=== PATIENT | female | born 1990 | race Caucasian/White ===

== ENCOUNTER 2022-03-17 15:46 | Emergency (ER) | payer OTHER | END 2022-03-17 22:07 | disposition home or self-care (01) | LOC: ER1 15:46 | DX: S80.01XA Contusion of right knee, initial encounter (principal); M06.9 Rheumatoid arthritis, unspecified; W01.10XA Fall on same level from slipping, tripping and stumbling with subsequent striking against unspecified object, initial encounter | CPT/HCPCS: 73560; 73564; 99283 ==